=== PATIENT | male | born 1980 | race Caucasian/White ===

== ENCOUNTER 2018-07-06 21:15 | Emergency (ER) | payer SELFPAY ==
[~2018-07-06] VITALS: Ht 165.1 cm; Wt 81.6 kg
[2018-07-06] MEDS ORDERED: IV NORMAL SALINE 1000ML BAG 1,000 ML IV ONE (21:45)
--- NOTE | 2018-07-06 21:47 | PHYS DOC ---
Past Medical History Past Medical History: No Pertinent History Past Surgical History: No Surgical History Additional Information: 1 ppd Alcohol Use: None Drug Use: None Adult General Chief Complaint Chief Complaint: DIZZY/LIGHT HEADED HPI HPI Patient is a 38 year old male who presents with took libido [place] enhancement last night around 9:00. Patient states he decided to take 2 pills over the next dose. Patient states he has dizziness lightheadedness, nausea ever since he took it along with a racing heart rate. Patient also states that he just got out of nursing home recently and has had anxiety ever since he has been released. Patient denies chest pain or shortness of air or LOC. Review of Systems Review of Systems Constitutional: Denies fever or chills [] Respiratory: Denies cough or shortness of breath [] Cardiovascular: Racing heart beat GI: Denies abdominal pain. Nausea. Denies vomiting, bloody stools or diarrhea [] : Denies dysuria or hematuria [] Neurologic: Denies headache, focal weakness or sensory changes [] All other systems were reviewed and found to be within normal limits, except as documented in this note. Current Medications Current Medications Current Medications Medications (Trade) Dose Ordered Sig/Joseluis Start Time Stop Time Status Last Admin Dose Admin Lorazepam (Ativan) 0.5 mg 1X ONCE 07/06/18 22:00 07/06/18 22:01 07/06/18 21:43 0.5 MG Sodium Chloride 1,000 ml @ 1,000 mls/hr 1X ONCE 07/06/18 21:45 07/06/18 22:44 UNV Allergies Allergies Allergies Coded Allergies Type Severity Reaction Last Updated Verified No Known Drug Allergies 07/06/18 No Physical Exam Physical Exam Constitutional: Well developed, well nourished, no acute distress, non-toxic appearance. [] HENT: Normocephalic, atraumatic, bilateral external ears normal, oropharynx moist, no oral exudates, nose normal. [] Eyes: PERRLA, EOMI, conjunctiva normal, no discharge. [] Neck: Normal range of motion, no tenderness, supple, no stridor. [] Cardiovascular:Heart rate sinus rhythm, no murmur [] Lungs & Thorax: Bilateral breath sounds clear to auscultation [] Abdomen: Bowel sounds normal, soft, no tenderness, no masses, no pulsatile masses. [] Skin: Warm, dry, no erythema, no rash. [] Back: No tenderness, no CVA tenderness. [] Extremities: No tenderness, no cyanosis, no clubbing, ROM intact, no edema. [] Neurologic: Alert and oriented X 3, normal motor function, normal sensory function, no focal deficits noted. [] Psychologic: Affect normal, judgement normal, mood normal, Anxious. [] Current Patient Data Vital Signs Vital Signs Date Time Temp Pulse Resp B/P (MAP) Pulse Ox O2 Delivery O2 Flow Rate FiO2 07/06/18 21:16 97.4 91 16 141/86 (104) 100 Room Air 97.4 Lab Values Laboratory Tests Test 07/06/18 21:36 POC Troponin I 0.00 ng/ml (<0.08) EKG EKG Sinus rhythm and no STEMI Interpretation Time: [address] Schuster Radiology/Procedures Radiology/Procedures [] Course & Med Decision Making Course & Med Decision Making Patient is a 38 year old male who presents with took libido [place] enhancement last night around 9:00. Patient states he decided to take 2 pills over the next dose. Patient states he has dizziness lightheadedness, nausea ever since he took it along with a racing heart rate. Patient also states that he just got out of nursing home recently and has had anxiety ever since he has been released. Patient denies chest pain or shortness of air or LOC. Skin is pink warm and dry. Alert and oriented and neurologically intact. Patient denies any pain. Lungs are clear to auscultation all lobes. Patient states he smokes one pack a day and does not do drugs or drink alcohol. He has no known drug allergies and has no past medical history or surgical history. Patient's EKG shows sinus rhythm but no STEMI. Vital signs are 110 heart rate, 100% on room air, 16 respirations, 141/86 blood pressure, 97.4 temperature. Abdomen is soft and nontender. Patient has no extremity swelling. Patient speaks in full clear sentences. When looking at the ingredients to this supplements and cause headaches, muscle cries, stomach cramps, indigestion, nausea, gas, dizziness, anxiety, sleep arms, hot flashes. ISTAT Troponin is 0.00. Patient is given mental health resources to help him deal with his anxiety. Patient is given 0.5mg Ativan IV. Patient should not take the supplement anymore and he needs to follow up with a primary care concerning his anxiety or any sexual dysfunction issues. [] Dragon Disclaimer Dragon Disclaimer This electronic medical record was generated, in whole or in part, using a voice recognition dictation system. Departure Departure Impression: Primary Impression: Anxiety Disposition: HOME, SELF-CARE Condition: STABLE Referrals: NO PCP (PCP) Patient Instructions: Anxiety and Panic Attacks Additional Instructions: Follow up with primary care TRAM TATE TRANSCRIPT CLERK Jul 06, 2018 21:47
[2018-07-06 21:50] VITALS: BP 136/89
--- NOTE | 2018-07-07 07:18 | EKG ---
[facility] [address] [place] [address] Test Date: 2018-07-06 Test Time: 21:21:09 Pat Name: GINNA RODRIGUEZ Department: Room: Gender: M Computer Repair Technician: : [id number] Requested By: TRAM TATE Order Number: [id number] Reading MD: Migue Cohen MD Measurements Intervals [place] Rate: 92 P: 64 OK: 140 QRS: 68 QRSD: 86 T: 34 QT: 350 QTc: 438 Interpretive Statements SINUS RHYTHM ATRIAL PREMATURE COMPLEX(ES) Electronically Signed On 07-09-2018 10:04:42 SET DESIGNER by Migue Cohen MD
== END 2018-07-06 22:10 | disposition home or self-care (01) ==
LOC: ER 21:15
DX: F41.9 Anxiety disorder, unspecified (principal); R42 Dizziness and giddiness; R11.0 Nausea; R00.0 Tachycardia, unspecified; F17.200 Nicotine dependence, unspecified, uncomplicated
CPT/HCPCS: 84484; 93005; 96374; 99284; J2060